=== PATIENT | male | born 1965 | race Caucasian/White ===

== ENCOUNTER 2022-08-05 19:42 | Emergency (ER) | payer OTHER ==
[2022-08-05 20:03] LABS: BASOPHIL 0.2 % (0-2); HCT 47.2 % (42.0-52.0); HGB 15.4 g/dl (13.2-18.0); LYMPHOCYTE 5.3 % (15-48); MCH 29.8 pg (25.0-31.0); MCHC 32.6 g/dL (32.0-36.0); MCV 91.5 fL (78.0-100.0); MONOCYTE 3.3 % (0-12); MPV 10.2 fL (6.0-9.5); NEUTROPHIL 89.9 % (41-80); NRBC 0; PLT 216 K/uL (150-400); RBC 5.16 M/uL (4.70-6.00); RDW 13.2 % (11.5-14.0); WBC 14.1 K/uL (4.0-10.5)
[2022-08-05 20:37] LABS: ALBUMIN 3.5 g/dL (3.4-5.0); BILIRUBIN - TOTAL 0.8 mg/dL (0.2-1.0); BUN/CREAT RATIO (CALC) 18.6 RATIO; CREATININE 0.86 mg/dL (0.67-1.17); GLOBULIN (CALCULATION) 3.5 g/dL
== END 2022-08-05 23:59 | disposition home or self-care (01) ==
LOC: FER 19:42
PROVIDERS: Emergency Medicine
DX: I49.3 Ventricular premature depolarization (principal); R55 Syncope and collapse; I10 Essential (primary) hypertension; Z82.49 Family history of ischemic heart disease and other diseases of the circulatory system; Z88.8 Allergy status to other drugs, medicaments and biological substances; Z88.6 Allergy status to analgesic agent
CPT/HCPCS: 36415; 80053; 84484; 85025; 93005; J3411; J3475; J7030